=== PATIENT | female | born 2000 | race Caucasian/White ===

== ENCOUNTER → 2018-06-25 14:24 | Outpatient (CLI) | payer OTHER, SELFPAY ==
[2018-06-25 15:36] LABS: Absolute Lymphocyte Count 1.29 X10^3/ul (0.83-4.51); Absolute Neutrophil Count 2.9 X10^3/uL (2.0-7.7); Basophil# 0.02 X10^3/uL; Basophil% 0.4 % (0-1); Eosinophil# 0.09 X10^3/uL; Eosinophils% 1.9 % (0-5); Hematocrit 39.7 % (37-47); Hemoglobin 12.8 g/dl (12.0-15.0); Lymphocyte # 1.29 X10^3/ul (4.0); Lymphocyte % 27.2 % (19-41); Mean Corp Hgb Conc 32.2 g/gl (32-36); Mean Corpuscular Hgb 30.3 pg (27.0-32.0); Mean Corpuscular Volume 93.9 fL (81-99); Mean Platelet Vol. 9.3 fl (6.2-12.0); Monocyte# 0.41 X10^3/uL; Monocyte% 8.6 % (0-10); Neutrophil # 2.94 X10^3/uL (2.7-7.7); Neutrophil % 61.9 % (47-70); Platelet Count 237 K/mm3 (150-450); RBC Distribution Width CV 12.3 % (11.6-14.6); RBC Distribution Width SD 41.2 fl (35.1-43.9); Red Blood Count 4.23 M/mm3 (4.2-5.4); White Blood Count 4.8 K/mm3 (4.4-11.0)
[2018-06-25 15:37] LABS: POSITIVE COUNT NO; POSITIVE DIFFERENTIAL NO; POSITIVE MORPHOLOGY NO
[2018-06-25 16:08] LABS: Ferritin 19 ng/mL (8-252); Thyroid Stim Hormone (TSH) 1.19 uIU/mL (0.358-3.74)
== END ==
PROVIDERS: Family Provider Family Medicine; PCP Family Medicine; Visit Provider Family Medicine
DX: N92.0 Excessive and frequent menstruation with regular cycle (principal)
CPT/HCPCS: 36415; 82728; 84443; 85025

== ENCOUNTER → 2020-09-04 18:19 | Outpatient (CLI) | payer OTHER, SELFPAY ==
[2014-06-04 18:16] VITALS: BMI 20.1
[2020-09-08 12:08] LABS: Chlamydia By Nucleic Acid AMP Negative (Negative)
[2020-09-08 12:49] LABS: Gonococcus By Nucleic Acid AMP Negative (Negative)
[2020-09-08 16:00] LABS: HPV Reflexed? NOT INDICATED
== END ==
PROVIDERS: PCP Family Medicine; Visit Provider Nurse Practitioner Family
DX: Z01.419 Encounter for gynecological examination (general) (routine) without abnormal findings (principal)
CPT/HCPCS: 87491; 87591; 88175; G0145

== ENCOUNTER → 2021-04-30 12:21 | Outpatient (CLI) | payer OTHER, SELFPAY ==
--- NOTE | 2021-04-30 12:33 | RAD_ITS ---
STUDY: X-RAY - ACUTE ABDOMINAL SERIES REASON FOR EXAM: Female, 20 years old. ABD PAIN TECHNIQUE: Single view of the chest. Supine, and erect view(s) of the abdomen were obtained. COMPARISON: Comparison is made with prior chest radiograph dated 04/16/2014. FINDINGS: There is a 1.2 cm rounded well-circumscribed nodular density overlying the midthoracic trachea. This most likely represents a skin lesion. Clinical correlation is recommended. The lungs are clear and expanded. Normal size heart. Normal mediastinum and wayne. Normal visualized pulmonary arteries. Normal visualized aortic arch and descending thoracic aorta. There is a moderate amount of colonic fecal material. The soft tissue structures of the abdomen and pelvis are unremarkable. Normal visualized osseous structures. RAD/Acute Abdomen Inc Chest IMPRESSION: Moderate amount of fecal material is seen in the colon. 1.2 cm well-defined well delineated nodule overlying the mid trachea as described. This most likely represents a skin lesion. Clinical correlation is recommended. Electronically Signed: Mendez Leggett MD at 15:46 EDT , Service support ,
[2021-04-30 16:07] LABS: ALB/GLOB Ratio 1.1 RATIO (0.9-2.4); AST(SGOT) 19 U/L (15-37); Alanine Aminotransfer ALT/SGPT 17 U/L (13-56); Albumin, Serum 3.8 g/dL (3.2-5.0); Alkaline Phosphatase 69 U/L (45-117); Anion Gap 9 (5-15); BUN 9 mg/dL (7-18); BUN/Creat Ratio 11.7 RATIO (10-20); Calcium,Total 8.8 mg/dL (8.5-10.1); Chloride 108 mmol/L (98-107); Creatinine, Serum 0.77 mg/dL (0.55-1.02); EST Glomerular Filtration Rate 100 mL/min (>60); Est Glom Filt Rate - Afr Amer 121 mL/min (>60); Globulin 3.5 g/dL (2.2-4.2); Glucose 75 mg/dL (74-106); Potassium 3.7 mmol/L (3.5-5.1); Protein, Total 7.3 g/dL (6.4-8.2); Sodium Level 142 mmol/L (136-145)
[2021-04-30 16:20] LABS: Absolute Lymphocyte Count 1.62 X10^3/uL (0.83-4.51); Absolute Neutrophil Count 2.8 X10^3/uL (2.0-7.7); Basophil# 0.03 X10^3/uL; Basophil% 0.6 % (0-1); Hematocrit 39.5 % (37-47); Hemoglobin 13.2 g/dL (12.0-15.0); Lymphocyte # 1.62 X10^3/ul (0.83-4.51); Mean Corp Hgb Conc 33.4 g/dL (32-36); Mean Corpuscular Hgb 30.6 pg (27.0-32.0); Mean Corpuscular Volume 91.6 fL (81-99); Monocyte# 0.41 X10^3/uL; Monocyte% 8.1 % (0-10); NRBC Flagged by Analyzer 0 % (0-5); Neutrophil # 2.79 X10^3/uL (2.7-7.7); Neutrophil % 55.1 % (47-70); Platelet Count 269 K/mm3 (150-450); RBC Distribution Width CV 11.9 % (11.6-14.6); Red Blood Count 4.31 M/mm3 (4.2-5.4); White Blood Count 5.1 K/mm3 (4.4-11.0)
[2021-04-30 16:25] LABS: Erythrocyte Sedimentation Rate 4 mm/hr (0-30)
[2021-05-02 13:21] LABS: H. Pylori Antibody (IgG) 0.09 (0.00-0.79)
== END ==
PROVIDERS: PCP Family Medicine; Referring Provider Family Medicine; Visit Provider Family Medicine
DX: R10.9 Unspecified abdominal pain (principal)
CPT/HCPCS: 36415; 74022; 80053; 85025; 85652; 86677

== ENCOUNTER 2021-11-07 21:07 | Emergency (ER) | payer OTHER, SELFPAY ==
[2021-11-07 21:07] VITALS: BP 139/83; PULSE 77; RESP 16; TEMP 35.9; O2SAT 98; BMI 25.2
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
--- NOTE | 2021-11-07 21:46 | EDS_ITS ---
HPI History of Present Illness Chief Complaint: Head Injury Informant: patient and friend Onset/Context/Timing Onset: Yesterday Current Severity: Mild Maximum Severity: Mild Associated Symptoms Associated Symptoms: Negative for Parasthesias, Weakness, Loss of function, Inability to ambulate, Loss of consciousness and Amnesia Narrative Narrative: 20-year-old female no sniffing past medical history. Last night was at a friend's house she had been drinking. She fell on there concrete garage floor striking the right side of her forehead. She had no LOC. She difficulty getting up at that time but was able to get up. Today she had a worsening headache and started having nausea and vomiting around 5 PM. She really denies other complaints. She denies any recent illness. Prior similar symptoms: No Recent Illness/Hospitalization: No PFSH PFSH Medical History Depression Home Medications naproxen 500 mg PO BID #20 tab 06/04/14 [Rx Last Taken Unknown] norethindrone ac-eth estradiol [Microgestin 12/06 ()] 1 tab PO DAILY 11/07/21 [History Last Taken Unknown] ondansetron 4 mg PO Q6H PRN #10 tab 11/07/21 [Rx Last Taken Unknown] Allergy/AdvReac Type Severity Reaction Status Date / Time No Known Allergies Allergy Verified 11/07/21 21:09 Social History Smoking Status: Never smoker ROS ROS ED ROS Narrative Head injury. Headache. Nausea vomiting. Review of Systems ROS Unobtainable: Denies due to encephalopathy Constitutional Constitutional ED: Denies fever(s) Eyes Eyes: Denies change in vision ENT ENT ED: Denies ear pain Cardiovascular Cardiovascular: Denies chest pain Respiratory/Chest Respiratory/Chest: Denies cough or dyspnea Gastrointestinal Gastrointestinal: Reports nausea and vomiting; Denies abdominal pain or diarrhea Genitourinary Genitourinary ED: Denies dysuria Musculoskeletal Musculoskeletal: Denies myalgias Integumentary Denies rash Neurologic Neurologic: Reports headache(s) Psychiatric Psychiatric: Denies depression Endocrine Endocrinology: Denies polyuria Hematologic/Lymphatic Hematologic/Lymphatic: Denies easy bruising Allergic/Immunologic Allergic/Immunologic ED: Denies urticaria EXAM Physical Exam Narrative Exam Narrative: Young female vital signs are stable afebrile. HEENT exam contrary advised motions are intact. Right forehead scalp tender hematoma. No laceration. Posterior scalp nontender trauma. C-spine and trachea are nontender. Normal range of motion to her neck. Lungs clear to auscultation bilaterally. Chest wall nontender. Heart regular rate and rhythm rate about 75 no murmur. Abdomen soft nontender normal bowel sounds no peritoneal signs. Back nontender no bruising. Moving all 4 extremities. Normal applications manager strength bilaterally. Normal dorsi plantar flexion. No deformity. Nontender. Neurologically she is awake and alert. She sit in a darkened room because she has photophobia to the light. She knows day, month and year. She is answering questions and following commands normally. She has no motor weakness or nu mbness. Const Vital Signs: 11/07/21 21:07 Temperature 96.7 F L Temperature Source Temporal Pulse Rate 77 Respiratory Rate 16 Blood Pressure 139/83 H Blood Pressure Mean 101 Pulse Ox 98 Oxygen Delivery Method Room Air Positive well nourished and well developed; Negative for obese, cachectic, contractures or unkempt General Appearance ED: well developed and NAD; Negative for unkempt, cachectic or contractures Nutritional Appearance: Negative for cachectic or obese HEENT trauma and tenderness; Negative for atraumatic Eyes PERRL and EOMs intact bilaterally Neck full ROM General: Negative for tenderness Chest Wall inspection of chest normal and palpation of chest normal Resp normal respiratory effort and clear to auscultation bilaterally Auscultation: Negative for rales, rhonchi or wheezes Cardio regular rhythm, S1 normal heart sound, S2 normal heart sound and no murmurs Rate: regular rate GI normal to inspection, nondistended, normoactive bowel sounds, non-tender, non- distended and no masses Auscultation: normoactive bowel sounds Palpation: soft; Negative for tender, guarding or rebound tenderness present Back/Spine normal to inspection and no thoracic nor lumbar tenderness General Back: Negative for CVA tenderness Thoracic Spine / Upper Back: Negative for thoracic spinal tenderness Extremity normal to inspection and full ROM General Extremety ED: Negative for deformity, edema or tenderness General Extremity: Negative for deformity or edema Neuro oriented x3, CN's II-XII intact bilaterally, moves all extremities, no focal motor deficits and no sensory deficits noted [place] Coma Scale: document GCS findings Spontaneous Obeys Commands Oriented 15 Sensorium / Orientation: alert, oriented to person, oriented to place and oriented to time; Negative for orientation impaired, lethargic or stuporous Motor Exam: strength 5/5 throughout Psych mental status grossly normal and thought process normal Appearance: Negative for unkempt Mood & Affect: Negative for depressed or tearful Skin no rashes or lesions noted and no jaundice Skin Narrative: Contusion right forehead and scalp MDM MDM MDM Narrative Medical decision making narrative: 20-year-old female fell and hit her head last night. Today headache with nausea vomiting. Initially presented to an urgent care where she was given IM Zofran. She has an obvious contusion to her head. A CAT scan of the brain and C-spine will be obtained. Repeat exam patient is resting comfortably at 10:08 PM. Were awaiting CAT scan results. Patient be discharged home with head injury instructions and a prescription for Zofran. Radiography Diagnostic Testing: CT brain without contrast interpreted by myself shows no acute abnormality. Awaiting formal radiologist interpretation. I do not see any obvious intracranial bleed or skull fracture at this time. CT C-spine no acute abnormality but again awaiting radiologist interpretation. Discharge Plan Triage Chief Complaint: Head Injury ED Provider: Gideon Fenton Dx/Rx/DC Orders Clinical Impression: Fall, Concussion Instructions: ED Concussion Prescriptions: New ondansetron 4 mg tablet,disintegrating 4 mg PO Q6H PRN (Reason: nausea and vomiting) Qty: 10 RF: 0 No Action naproxen 500 MG tablet 500 mg PO BID Qty: 20 RF: 0 norethindrone ac-eth estradiol [Microgestin 12/06 ()] 1-20 mg-mcg tablet 1 tab PO DAILY RF: 0 Primary Care Provider: Neo Dotson Referrals: Neo Dotson MD [Primary Care Provider] - 1 Week if not improving Activity Restrictions/Additional Instructions: Ice to your scalp for it sore and swollen. Tylenol and Motrin for pain. This should progressively improve over the next several days. You do have a concussion and it may take a week or longer to resolve. Zofran as needed for nausea. You can either swallow it or hold it under your tongue for nausea. All the symptoms should progressively improve. If you are feeling worse return if you are just not improving follow-up with your primary care physician for repeat evaluation. Disposition Disposition: Home, Self Care
== END 2021-11-07 23:30 | disposition home or self-care (01) ==
PROVIDERS: Emergency Provider Emergency Medicine; PCP Family Medicine
DX: S06.0X9A Concussion with loss of consciousness of unspecified duration, initial encounter (principal); W22.09XA Striking against other stationary object, initial encounter; Z79.3 Long term (current) use of hormonal contraceptives
CPT/HCPCS: 70450; 72125; 99282

== ENCOUNTER → 2022-11-28 | Outpatient (CLI) | payer BC, SELFPAY ==
[2022-11-28 12:22] LABS: Hematocrit 39.3 % (37-47); Mean Corp Hgb Conc 33.1 g/dL (32-36); Mean Corpuscular Hgb 31.5 pg (27.0-32.0); Mean Corpuscular Volume 95.2 fL (81-99); Mean Platelet Vol. 9.1 fl (6.2-12.0); Platelet Count 253 K/mm3 (150-450); RBC Distribution Width CV 12.4 % (11.6-14.6); RBC Distribution Width SD 43.2 fl (35.1-43.9); Red Blood Count 4.13 M/mm3 (4.2-5.4); White Blood Count 5.3 K/mm3 (4.4-11.0)
[2022-11-28 12:55] LABS: ALB/GLOB Ratio 1.1 RATIO (0.9-2.4); AST(SGOT) 12 U/L (15-37); Alanine Aminotransfer ALT/SGPT 23 U/L (13-56); Albumin, Serum 3.3 g/dL (3.2-5.0); Alkaline Phosphatase 58 U/L (45-117); Anion Gap 8 (5-15); BUN 7 mg/dL (7-18); Calcium,Total 8.6 mg/dL (8.5-10.1); Chloride 111 mmol/L (98-107); Creatinine, Serum 0.87 mg/dL (0.55-1.02); EST Glomerular Filtration Rate 85 mL/min (>60); Est Glom Filt Rate - Afr Amer 103 mL/min (>60); Globulin 3.1 g/dL (2.2-4.2); Glucose 113 mg/dL (74-106); Potassium 4.1 mmol/L (3.5-5.1); Protein, Total 6.4 g/dL (6.4-8.2); Sodium Level 142 mmol/L (136-145)
[2022-11-28 12:59] LABS: Vitamin D,25 Hydroxy 24.2 ng/mL
== END | disposition home or self-care (01) ==
LOC: MFPLAB 10:53
PROVIDERS: PCP Family Medicine; Referring Provider Family Medicine; Visit Provider Family Medicine
DX: F41.9 Anxiety disorder, unspecified (principal); F31.9 Bipolar disorder, unspecified
CPT/HCPCS: 36415; 80053; 82306; 85027

== ENCOUNTER 2024-12-04 10:02 | Emergency (ER) | payer OTHER, MEDICAID, SELFPAY ==
[2024-12-04 10:04] VITALS: BP 133/90; PULSE 76; RESP 18; TEMP 36.9; O2SAT 100; BMI 20.5
[2024-12-04 10:09] VITALS: BP 133/90; PULSE 71; O2SAT 99
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
[2024-12-04] MEDS: Acetaminophen 500 MG Tablet 1000 MG PO (11:16)
[2024-12-04 13:17] VITALS: BP 133/90; PULSE 71; RESP 18; TEMP 36.9; O2SAT 99
== END 2024-12-04 13:30 | disposition home or self-care (01) ==
PROVIDERS: Emergency Provider Emergency Medicine; PCP Family Medicine; Visit Provider Emergency Medicine
DX: S16.1XXA Strain of muscle, fascia and tendon at neck level, initial encounter (principal); S09.90XA Unspecified injury of head, initial encounter; S39.012A Strain of muscle, fascia and tendon of lower back, initial encounter; V43.52XA Car driver injured in collision with other type car in traffic accident, initial encounter
CPT/HCPCS: 70450; 71046; 72100; 72125; 99284